=== PATIENT | male | born 1960 | race Caucasian/White ===

== ENCOUNTER 2023-11-13 13:20 | Inpatient (IN) | payer OTHER ==
[~2023-11-13] VITALS: Ht 175.3 cm; Wt 80.7 kg
[2023-11-13 14:11] VITALS: TEMP 97.8
[2023-11-13] MEDS ORDERED: SODIUM CHLORIDE FLUSH 10 ML SYR IV PRN (14:30)
[2023-11-13 14:34] LABS: BASOPHILS % 0.2 % (0.0-1.0); EOSINOPHILS % 0.3 % (0.0-6.0); HEMATOCRIT 42.3 % (38.2-49.6); HEMOGLOBIN 14.2 g/dL (14.0-18.0); LYMPHOCYTES # (AUTO) 0.8 (1.0-3.2); LYMPHOCYTES % 12.7 % (18.0-39.1); MEAN CORPUSCULAR HEMOGLOBIN 31.7 pg (28-32); MEAN CORPUSCULAR HGB CONC 33.6 g/dL (31-35); MEAN CORPUSCULAR VOLUME 94.4 fL (81-99); MONOCYTES # (AUTO) 0.2 (0.2-0.8); MONOCYTES % 2.5 % (4.4-11.3); NEUTROPHILS # (AUTO) 5.4 (2.1-6.9); PLATELET COUNT 175 x10e3/uL (140-360); RED BLOOD COUNT 4.48 x10e6/uL (4.3-5.7); RED CELL DISTRIBUTION WIDTH 11.9 % (11.7-14.4); WHITE BLOOD COUNT 6.37 x10e3/uL (4.8-10.8)
[2023-11-13] MEDS: SODIUM CHLORIDE 0.9% 1000ML 1,000 ML IV STA ×2 (14:42→17:18)
[2023-11-13] MEDS: ONDANSETRON HCL INJ 2MG/ML 2ML 2 MG/ML VIAL IV STA (14:43)
[2023-11-13 14:54] LABS: ALBUMIN 5.2 g/dL (3.5-5.0); ALBUMIN/GLOBULIN RATIO 1.6 (0.8-2.0); BILIRUBIN,TOTAL 0.7 mg/dL (0.2-1.2); CALCIUM 9.6 mg/dL (8.4-10.2); CREATININE, SERUM 1.38 mg/dL (0.72-1.25); TOTAL PROTEIN 8.5 g/dL (6.5-8.1)
[2023-11-13 15:02] LABS: TROPONIN I 0.007 ng/mL (0-0.300)
[2023-11-13 17:21] VITALS: PULSE 75; RESP 18
[2023-11-13] MEDS ORDERED: IOPAMIDOL 370 MG/ML 100 ML INFUS..BTL INJ ONE (17:29)
[2023-11-13] MEDS ORDERED: ALBUTEROL/IPRATROPIUM 3 ML NEB NEB PRN (17:30)
[2023-11-13] MEDS ORDERED: DIPHENHYDRAMINE HCL 25 MG CAP PO PRN (17:30)
[2023-11-13] MEDS ORDERED: DOCUSATE SODIUM 100 MG CAP PO PRN (17:30)
[2023-11-13] MEDS ORDERED: ACETAMINOPHEN 325 MG TAB PO PRN (17:30)
[2023-11-13] MEDS ORDERED: SIMETHICONE 80 MG CHEW PO PRN (17:30)
[2023-11-13] MEDS ORDERED: LIDOCAINE 4% PATCH TP PRN (17:30)
[2023-11-13] MEDS ORDERED: BENZONATATE 100 MG CAP PO PRN (17:30)
[2023-11-13] MEDS ORDERED: DEXTROSE 50% SYRINGE 50 ML IV PRN (17:30)
[2023-11-13] MEDS ORDERED: POTASSIUM CHLORIDE 20 MEQ TAB CR PO PRN (17:30)
[2023-11-13 18:19] VITALS: BP 168/92; PULSE 83; RESP 17; TEMP 98.9; O2SAT 100
[2023-11-13] MEDS: FUROSEMIDE INJ 10 MG/ML 2 ML VIAL IV ONE (18:51)
[2023-11-13] MEDS: SODIUM CHLORIDE 0.9% 1000ML 1,000 ML IV SCH (18:51)
[2023-11-13 19:19] VITALS: BP 178/86; PULSE 85; RESP 18; TEMP 98.4; O2SAT 98
[2023-11-13 19:27] LABS: ANION GAP 19.7 mmol/L (8-16); CREATININE, SERUM 1.19 mg/dL (0.72-1.25); POTASSIUM 4.7 mmol/L (3.5-5.1)
[2023-11-13 21:00] VITALS: BP 194/112; PULSE 85; RESP 18; TEMP 98.4; O2SAT 98
[2023-11-13] MEDS: METOCLOPRAMIDE HCL 10 MG/2ML VIAL IV SCH (21:19)
[2023-11-13] MEDS: ONDANSETRON HCL INJ 2MG/ML 2ML 2 MG/ML VIAL IV PRN (21:20)
[2023-11-13] MEDS: HYDRALAZINE HCL 20 MG/ML VIAL IV PRN (21:21)
[2023-11-13 23:16] VITALS: BP 107/71; PULSE 95; RESP 18; TEMP 99.8; O2SAT 100
[2023-11-14] VITALS (7 sets, daily range): BP systolic 107–159; BP diastolic 68–81; PULSE 80–95; RESP 18–19; TEMP 97.7–99.8; O2SAT 97–100
[2023-11-14] MEDS ORDERED: METOPROLOL SUCC50 MG PO (00:19)
[2023-11-14] MEDS ORDERED: TROPICAMIDE15 M1 OU (00:19)
[2023-11-14] MEDS ORDERED: OMEGA-3 FISH O1 EAC3 PO (00:19)
[2023-11-14] MEDS ORDERED: TRADJENTA5 MG PO (00:19)
[2023-11-14] MEDS ORDERED: SPIRONOLACTONE25 MG PO (00:19)
[2023-11-14] MEDS ORDERED: NITROGLYCERIN0.4 MG SL (00:19)
[2023-11-14] MEDS ORDERED: METFORMIN HCL500 MG PO (00:19)
[2023-11-14] MEDS ORDERED: CLOPIDOGREL75 MG PO (00:19)
[2023-11-14] MEDS ORDERED: JARDIANCE25 MG (00:19)
[2023-11-14] MEDS ORDERED: XARELTO20 MG PO (00:19)
[2023-11-14] MEDS ORDERED: ENTRESTO 49 MG1 EACH PO (00:19)
[2023-11-14 05:33] LABS: HEMATOCRIT 37.8 % (38.2-49.6); HEMOGLOBIN 12.3 g/dL (14.0-18.0); LYMPHOCYTES # (AUTO) 1.2 (1.0-3.2); LYMPHOCYTES % 19.9 % (18.0-39.1); MEAN CORPUSCULAR HGB CONC 32.5 g/dL (31-35); MEAN CORPUSCULAR VOLUME 95.2 fL (81-99); MONOCYTES # (AUTO) 0.5 (0.2-0.8); MONOCYTES % 8.6 % (4.4-11.3); NEUTROPHILS # (AUTO) 4.1 (2.1-6.9); NEUTROPHILS % 71.2 % (38.7-80.0); PLATELET COUNT 155 x10e3/uL (140-360); RED BLOOD COUNT 3.97 x10e6/uL (4.3-5.7); RED CELL DISTRIBUTION WIDTH 11.9 % (11.7-14.4); WHITE BLOOD COUNT 5.79 x10e3/uL (4.8-10.8)
[2023-11-14 05:55] LABS: ALBUMIN 4.2 g/dL (3.5-5.0); ALBUMIN/GLOBULIN RATIO 1.6 (0.8-2.0); ANION GAP 18.3 mmol/L (8-16); BILIRUBIN,TOTAL 0.4 mg/dL (0.2-1.2); CALCIUM 8.4 mg/dL (8.4-10.2); CREATININE, SERUM 1.26 mg/dL (0.72-1.25); POTASSIUM 4.3 mmol/L (3.5-5.1); TOTAL PROTEIN 6.8 g/dL (6.5-8.1)
[2023-11-14 06:34] LABS: MAGNESIUM 1.7 MG/DL (1.3-2.1); PHOSPHORUS 4.9 MG/DL (2.3-4.7)
[2023-11-14] MEDS ORDERED: ENOXAPARIN SOD INJ 40 MG/0.4 ML SYR SC SCH (17:00)
[2023-11-14] MEDS: RIVAROXABAN 20 MG TABLET PO SCH (17:19)
[2023-11-14] MEDS: MECLIZINE HCL 12.5 MG TAB PO SCH (17:19)
[2023-11-14] MEDS: SACUBITRIL49MG/VALSARTAN51MG 1 EACH TABLET PO SCH (17:19)
[2023-11-14] MEDS: LORATADINE 10 MG TAB PO SCH (17:25)
[2023-11-14] MEDS: FLUTICASONE PROPIONATE NASAL SPRAY NS SCH (17:51)
[2023-11-14] MEDS: SODIUM CHLORIDE 0.9% 1000ML 1,000 ML IV SCH (17:51)
[2023-11-14] MEDS: SODIUM BICARBONATE 8.4% INJ 50 ML SYR IV ONE (17:51)
[2023-11-14] MEDS: MELATONIN 5 MG TABLET PO PRN (21:14)
[2023-11-15] VITALS (7 sets, daily range): BP systolic 131–172; BP diastolic 83–94; PULSE 67–76; RESP 18–20; TEMP 97.8–98.6; O2SAT 97–99
[2023-11-15 06:00] LABS: BASOPHILS % 0.2 % (0.0-1.0); EOSINOPHILS # (AUTO) 0.1 (0.0-0.4); EOSINOPHILS % 1.1 % (0.0-6.0); HEMATOCRIT 38.7 % (38.2-49.6); HEMOGLOBIN 12.7 g/dL (14.0-18.0); LYMPHOCYTES # (AUTO) 1.5 (1.0-3.2); LYMPHOCYTES % 24.2 % (18.0-39.1); MEAN CORPUSCULAR HEMOGLOBIN 31.4 pg (28-32); MEAN CORPUSCULAR HGB CONC 32.8 g/dL (31-35); MEAN CORPUSCULAR VOLUME 95.8 fL (81-99); MONOCYTES # (AUTO) 0.4 (0.2-0.8); MONOCYTES % 6.6 % (4.4-11.3); NEUTROPHILS # (AUTO) 4.2 (2.1-6.9); NEUTROPHILS % 67.4 % (38.7-80.0); PLATELET COUNT 152 x10e3/uL (140-360); RED BLOOD COUNT 4.04 x10e6/uL (4.3-5.7); RED CELL DISTRIBUTION WIDTH 11.9 % (11.7-14.4); WHITE BLOOD COUNT 6.21 x10e3/uL (4.8-10.8)
[2023-11-15 06:53] LABS: ALBUMIN 3.8 g/dL (3.5-5.0); ALBUMIN/GLOBULIN RATIO 1.5 (0.8-2.0); ANION GAP 16.1 mmol/L (8-16); BILIRUBIN,TOTAL 0.6 mg/dL (0.2-1.2); CALCIUM 8.6 mg/dL (8.4-10.2); CHOL/HDL RATIO 5.1 (3.9-4.7); CREATININE, SERUM 0.89 mg/dL (0.72-1.25); POTASSIUM 4.1 mmol/L (3.5-5.1); TOTAL PROTEIN 6.4 g/dL (6.5-8.1)
[2023-11-15] MEDS: METOPROLOL SUCCINATE 50 MG TAB XL PO SCH (10:28)
[2023-11-15] MEDS: CLOPIDOGREL BISULFATE 75 MG TAB PO SCH (10:32)
[2023-11-15] MEDS: SODIUM BICARBONATE 8.4% INJ 50 ML SYR IV ONE (13:23)
[2023-11-15 17:17] LABS: THYROID STIMULATING HORMONE 1.871 uIU/mL (0.350-4.940)
[2023-11-16 04:00] VITALS: BP 153/85; PULSE 62; RESP 16; TEMP 98; O2SAT 98
[2023-11-16 05:38] LABS: BASOPHILS % 0.2 % (0.0-1.0); EOSINOPHILS # (AUTO) 0.1 (0.0-0.4); EOSINOPHILS % 2.3 % (0.0-6.0); HEMATOCRIT 38.8 % (38.2-49.6); HEMOGLOBIN 13.3 g/dL (14.0-18.0); LYMPHOCYTES # (AUTO) 1.6 (1.0-3.2); LYMPHOCYTES % 30.9 % (18.0-39.1); MEAN CORPUSCULAR HGB CONC 34.3 g/dL (31-35); MEAN CORPUSCULAR VOLUME 93.3 fL (81-99); MONOCYTES # (AUTO) 0.4 (0.2-0.8); MONOCYTES % 7.5 % (4.4-11.3); NEUTROPHILS # (AUTO) 3.1 (2.1-6.9); NEUTROPHILS % 58.7 % (38.7-80.0); PLATELET COUNT 157 x10e3/uL (140-360); RED BLOOD COUNT 4.16 x10e6/uL (4.3-5.7); RED CELL DISTRIBUTION WIDTH 11.8 % (11.7-14.4)
[2023-11-16 06:05] LABS: ANION GAP 12.9 mmol/L (8-16); CALCIUM 8.7 mg/dL (8.4-10.2); CREATININE, SERUM 0.82 mg/dL (0.72-1.25); POTASSIUM 3.9 mmol/L (3.5-5.1)
[2023-11-16 07:11] VITALS: BP 164/83; PULSE 60; RESP 18; TEMP 98.4; O2SAT 98
[2023-11-16 09:00] VITALS: BP 164/83; PULSE 60; RESP 18; TEMP 98.4; O2SAT 98
[2023-11-16 10:58] VITALS: BP 150/88; PULSE 64; RESP 18; TEMP 98.9; O2SAT 100
[2023-11-16 12:28] VITALS: PULSE 65; RESP 18; O2SAT 98
[2023-11-16 19:42] VITALS: PULSE 68; RESP 18; O2SAT 97
== END 2023-11-16 21:12 | disposition home or self-care (01) | DRG 392 ==
LOC: ER 14:29 → ERHOLD 17:15 → MED/SURG2 18:34 → OBSVTOIN 11-15 12:06
PROVIDERS: ADMIT Internal Medicine; ATTEND Internal Medicine
DX: A08.4 Viral intestinal infection, unspecified (principal); I50.20 Unspecified systolic (congestive) heart failure; E11.51 Type 2 diabetes mellitus with diabetic peripheral angiopathy without gangrene; I11.0 Hypertensive heart disease with heart failure; K76.0 Fatty (change of) liver, not elsewhere classified; E86.0 Dehydration; H81.10 Benign paroxysmal vertigo, unspecified ear; I25.2 Old myocardial infarction; M54.50 Low back pain, unspecified; Z79.02 Long term (current) use of antithrombotics/antiplatelets; Z79.01 Long term (current) use of anticoagulants; Z79.84 Long term (current) use of oral hypoglycemic drugs; Z95.810 Presence of automatic (implantable) cardiac defibrillator; Z98.61 Coronary angioplasty status; F17.210 Nicotine dependence, cigarettes, uncomplicated; Z83.3 Family history of diabetes mellitus; Z82.49 Family history of ischemic heart disease and other diseases of the circulatory system
CPT/HCPCS: 36415; 70450; 71046; 74177; 80048; 80053; 80061; 82550; 82948; 83690; 83735; 84100; 84443; 84484; 85025; 93005; 93306; 93880; 93925; 94799; 99284; G0378; J0360; J1940; J2405; J2470; J2765; J7030; Q9967